=== PATIENT | female | born 2000 | race African-American/Black ===

== ENCOUNTER 2024-01-27 08:59 | Outpatient (REF) | payer OTHER, SELFPAY ==
--- NOTE | ~2024-01-27 | US_ITS ---
EXAMINATION: US PELVIS CLINICAL INFORMATION: Pelvic pain-diffuse LMP 01/20/2024 COMPARISON: None available. TECHNIQUE: Ultrasound of the pelvis is performed using both transabdominal and transvaginal transducers along with Doppler. Transvaginal imaging is performed due to inadequate visualization transabdominally. FINDINGS: Uterus: The uterus is anteverted and measures 6.7 x 2.6 x 4.7 cm. No focal fibroid The endometrial thickness is 0.2 cm. Both ovaries are visualized. There is normal color flow to the adnexa. There is no ovarian torsion. There is no pelvic ascites or fluid collection. Right ovary measures 2.2 x 3.0 x 1.9 cm. Volume 6.3 mL. Left ovary measures 3.3 x 2.4 x 2.3 cm. Volume 9.3 mL. US/US pelvic and transvaginal IMPRESSION: Normal pelvic ultrasound.
== END 2024-01-27 09:00 | disposition home or self-care (01) ==
LOC: HO.UMASIMG 08:59
PROVIDERS: Visit Provider Nurse Practitioner Women's Health
DX: R10.2 Pelvic and perineal pain (principal); N76.0 Acute vaginitis
CPT/HCPCS: 76830; 76856